=== PATIENT | male | born 1980 | race Caucasian/White ===

== ENCOUNTER 2017-04-23 12:36 | Emergency (ER) | payer BC, SELFPAY | END 2017-04-23 14:35 | disposition home or self-care (01) | LOC: ERS 12:36 | DX: M72.2 Plantar fascial fibromatosis (principal); F17.210 Nicotine dependence, cigarettes, uncomplicated | CPT/HCPCS: 99283 ==

== ENCOUNTER 2018-04-07 13:36 | Emergency (ER) | payer BC, SELFPAY ==
[2018-04-07 15:01] LABS: Bilirubin Negative (Negative); Blood, Urine Negative (Negative); Clarity CLEAR (Clear); Glucose, Urine (Dipstick) Negative (Negative); Leukocyte Negative (Negative); Nitrite Negative (Negative); Protein, Urine (Dipstick) Negative (Neg-Trace); Specific Gravity, Urine 1.017 (1.002-1.036); pH, Urine 6.5 (5.0-9.0)
[2018-04-07] MEDS ORDERED: HYDROcodone/Acetaminophen 10/325 mg Tablet ONE (15:23)
[2018-04-07] MEDS ORDERED: Ibuprofen 800 MG TAB ONE (15:23)
[2018-04-07] MEDS ORDERED: cefTRIAXone\\ROCEPHIN 250 MG VIAL ONE (16:42)
[2018-04-07] MEDS ORDERED: Azithromycin 250 MG TAB ONE (16:42)
[2018-04-07] MEDS ORDERED: Lidocaine 1% PF 5 ML VIAL ONE (16:42)
[2018-04-10 02:04] LABS: Chlamydia by PCR Not Detected (NotDetected); GC by PCR Not Detected (NotDetected)
== END 2018-04-07 17:12 | disposition home or self-care (01) ==
LOC: ERS 13:36
DX: K62.3 Rectal prolapse (principal); F17.210 Nicotine dependence, cigarettes, uncomplicated
CPT/HCPCS: 81003; 87491; 87591; 96372; J0696; J2001

== ENCOUNTER 2018-04-11 19:09 | Observation (INO) | payer SELFPAY ==
[2018-04-11] MEDS ORDERED: Morphine 4 MG/ML VIAL ONE (22:18)
[2018-04-11 23:04] LABS: #Basophils 0.1 thou/uL (0.0-0.2); #Eosinphils 0.3 thou/uL (0.0-0.7); #Lymphocytes 4.1 thou/uL (1.20-3.40); #Monocytes 0.9 thou/uL (0.11-0.59); #Neutrophils 4.6 thou/uL (1.40-6.50); %Basophils 1.2 % (0.0-1.0); %Eosinophils 2.6 % (0.0-10.0); %Lymphocytes 41.2 % (21.0-51.0); %Monocytes 8.6 % (0.0-10.0); %Neutrophils 46.4 % (42.0-75.0); Hemoglobin 15.4 g/dL (14.0-18.0); Mean Corpuscular HGB CONC 32.5 g/dL (32.0-36.0); Mean Corpuscular Hemoglobin 32.5 pg (27.0-31.0); Mean Platelet Volume 6.8 fL (7.4-10.4); Platelet Count 309 thou/uL (130-400); RBC Distribution Width 12.1 % (11.5-14.5); Red Blood Cell (RBC) Count 4.72 mill/uL (4.70-6.10)
--- NOTE | 2018-04-11 23:09 | RAD ---
CHEST ONE VIEW: 04/11/18 INDICATION: History of rectal prolapse. COMPARISON: Prior chest radiograph dated 07/07/12. FINDINGS: Heart size is normal. Portions of the right lower costophrenic angle has been excluded. No acute osse ous abnormality is evident. IMPRESSION: Some limitation of the examination. No definite acute abnormality evident. POS: [facility]
[2018-04-11 23:10] LABS: INR-International Normal Ratio 0.9; PTT 29.1 SEC (22.9-36.1); Prothrombin Time 12.2 SEC (12.0-14.7)
[2018-04-11 23:43] LABS: ALT (SGPT) 34 U/L (8-55); AST (SGOT) 29 U/L (5-34); Albumin 4.4 g/dL (3.5-5.0); Alkaline Phosphatase 76 U/L (40-150); Anion Gap 14 mmol/L (10-20); BUN (Urea Nitrogen) 13 mg/dL (8.9-20.6); Bilirubin, Total Less than 0.2 mg/dL (0.2-1.2); Calc. Creatinine Clearance 0 mL/min (70-130); Calcium 10.1 mg/dL (7.8-10.44); Carbon Dioxide 26 mmol/L (22-29); Chloride 105 mmol/L (98-107); Estimated GFR-MDRD Greater than 90; Glucose 108 mg/dL (70-105); Potassium 3.9 mmol/L (3.5-5.1); Protein, Total 7.4 g/dL (6.0-8.3); Sodium 141 mmol/L (136-145)
[2018-04-11] MEDS ORDERED: Ondansetron ODT 4 MG TAB SL PRN (23:51)
[2018-04-11] MEDS ORDERED: Ondansetron PF 4 MG/2 ML Vial IVP PRN (23:51)
[2018-04-11] MEDS: Sodium Chloride 0.9% 1,000 ML IV SCH (23:57)
[2018-04-12 01:36] VITALS: BMI 22.4
[2018-04-12] MEDS: Morphine 4 MG/ML VIAL SLOW IVP PRN ×3 (02:18→08:51)
[2018-04-12] MEDS: Sodium Chloride 0.9% 1,000 ML IV SCH (08:49)
[2018-04-12] MEDS ORDERED: CEFAZOLIN 2 GM in Premix Bag 1 BAG IVPB SCH (09:15)
[2018-04-12] MEDS ORDERED: Morphine 4 MG/ML VIAL SLOW IVP PRN ×2 (11:16→11:17)
[2018-04-12] MEDS ORDERED: Ketorolac Tromethamine 30 MG/ML VIAL IVP SCH (11:30)
[2018-04-12] MEDS ORDERED: Midazolam HCl 2 mg/2 ml Vial ONE (15:11)
[2018-04-12] MEDS ORDERED: Fentanyl 100 MCG/2 ML VIAL ONE ×3 (15:37→17:18)
[2018-04-12] MEDS ORDERED: Bupivacaine HCl 0.5%/Epinephrine 1:200,000/PF 30 ml Vial ONE (15:39)
[2018-04-12] MEDS ORDERED: Bupivacaine 0.25% HCL 30 ML VIAL ONE (15:39)
[2018-04-12] MEDS ORDERED: Lidocaine 1% PF 5 ML VIAL ONE (15:43)
[2018-04-12] MEDS ORDERED: PROPOFOL 200 MG/20 ML VIAL ONE (15:43)
[2018-04-12] MEDS ORDERED: Dexamethasone 20 MG/5 ML VIAL ONE (15:43)
[2018-04-12] MEDS ORDERED: Ondansetron PF 4 MG/2 ML Vial ONE (15:43)
[2018-04-12] MEDS ORDERED: PHENYLEPHRINE-NS 100 MCG/ML 10 ML SYRINGE ONE (15:43)
[2018-04-12] MEDS ORDERED: ePHEDrine 50 MG/ML VIAL ONE (15:43)
[2018-04-12] MEDS ORDERED: Promethazine HCl 25 MG/ML VIAL IM PRN (16:21)
[2018-04-12] MEDS ORDERED: Promethazine HCl 25 MG/ML VIAL SLOW IVP PRN (16:21)
[2018-04-12] MEDS ORDERED: Ondansetron HCl/PF 4 MG/2 ML Vial IVP PRN (16:21)
[2018-04-12] MEDS ORDERED: Meperidine HCl/PF 25 MG/ML VIAL SLOW IVP PRN (16:21)
[2018-04-12] MEDS ORDERED: Ketorolac Tromethamine 30 MG/ML VIAL IVP PRN (16:21)
[2018-04-12] MEDS ORDERED: Ketorolac Tromethamine 30 MG/ML VIAL ONE (17:07)
[2018-04-12] MEDS ORDERED: Meperidine HCl/PF 25 MG/ML VIAL ONE (17:07)
--- NOTE | 2018-04-12 19:47 | HP ---
CHIEF COMPLAINT: Rectal pain with visible external mass. HISTORY OF PRESENT ILLNESS: The patient is a 37-year-old white male. He gives a history of about 4 or 5 days ago being at work and lifting something heavy at which time, he felt sudden onset of rectal pain and noticed a mass external to his anus. Later that day, he was seen in the emergency room and was felt to have a rectal prolapse. This was apparently treated by putting sugar on it and recommended that he be on MiraLAX and follow up with General Surgery. He presented to the emergency room again last night, when I was on-call and I was asked to evaluate him. I was again told that he likely had a rectal prolapse. He notes that while on MiraLAX, he has been having some bowel movements, but he has pain all the time as well as worse pain with a bowel movement and difficulty urinating as well. On brief examination, it looks like he could have some atypical low-grade rectal prolapse, but an attempt to reducing this was met with significant discomfort. On further examination, I felt that this likely was not an actual rectal prolapse. PAST MEDICAL HISTORY: Negative. PAST SURGICAL HISTORY: None. MEDICATIONS: None. ALLERGIES: NO KNOWN DRUG ALLERGIES. PERSONAL AND SOCIAL HISTORY: He is single with no children. He lives by himself. He smokes a pack of cigarettes per day. He drinks alcohol occasionally, but not every day. He denies illegal drugs. 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 He lives in [place]. REVIEW OF SYSTEMS: Otherwise unremarkable. FAMILY HISTORY: Noncontributory. PHYSICAL EXAMINATION: VITAL SIGNS: He is afebrile. vital signs are within normal limits. GENERAL: He is a well-developed, well-nourished, pleasant 37-year-old white male. He is alert and oriented x3. HEAD, EYES, EARS, NOSE, AND THROAT: Unremarkable. NECK: Supple without mass or tenderness. LUNGS: Clear to auscultation throughout. CARDIAC: Regular rate and rhythm without murmur. ABDOMEN: Soft, nontender, and nondistended. : Normal male external genitalia. RECTAL: He has indurated mass circumferentially around his anus, typical of external hemorrhoids. It is difficult to discern at bedside whether this is simply inflammation or thrombosis. He appears to have partially prolapsed thrombosed internal hemorrhoids. Again, it is difficult to discern at what radian these are or if they are in fact circumferential. LABORATORY DATA: CBC and basic metabolic panel are essentially normal. ASSESSMENT: The patient with severe rectal pain with what I suspect is thrombosed internal and external hemorrhoids. I recommend further evaluation under anesthesia. I would recommend thrombus evacuation and possible hemorrhoidectomy depending upon findings at the time of thorough examination. I discussed all this in detail with the patient as well as potential risks. After the surgery, I would recommend outpatient care with rest and frequent sitz baths, and MiraLAX to maintain regularity. I will make further recommendations following surgery and see him back in a couple of weeks. Job ID: [id number]
[2018-04-12 19:57] VITALS: BP 129/76; TEMP 98.2
[2018-04-12] MEDS ORDERED: Polyethylene Glycol 3350 17 GM Packet PO SCH (21:00)
--- NOTE | 2018-04-13 17:03 | OP ---
DATE OF PROCEDURE: 04/12/2018 PREOPERATIVE DIAGNOSES: Thrombosed internal and external hemorrhoids. POSTOPERATIVE DIAGNOSES: Thrombosed internal and external hemorrhoids. OPERATION PERFORMED: Two column internal/external hemorrhoidectomy and third column of external hemorrhoids only. ANESTHESIA: General endotracheal. INDICATIONS: The patient is a 37-year-old white male. He presented to the hospital complaining of extreme anorectal pain. This was initially felt to be rectal prolapse when viewed by emergency room physician; however, further examination by myself revealed that this was likely just thrombosed hemorrhoids. Due to the extent of his pain, I recommended surgical excision following examination under anesthesia. DESCRIPTION OF OPERATION: Informed consent was obtained, the patient was taken to the operating room, where general endotracheal anesthesia was obtained when the patient in supine position. He was then placed up into the dorsal lithotomy. The perianal area was trimmed of hair, prepped with Betadine, and draped in usual sterile fashion. Local anesthetic was infiltrated and a 4-quadrant intersphincteric fashion using 0.5% Marcaine with epinephrine. Examination revealed that there was evidence of likely external hemorrhoidal thrombosis in the posterior aspect (at the 6 o'clock radiant) as well as at the 3 o'clock radiant. There was extensive external edema almost circumferentially. Within the rectum, where 2 prolapsing and thrombosed internal hemorrhoids and these were both on the posterior aspect within a centimeter of each other and both around the 6 o'clock radiant. I decided first to proceed with excision of the posterior complex. The anal retractor was placed, additional local anesthetic was infiltrated. A mónica-shaped incision was created externally and carried internally to the level of the sphincter. The small LigaSure device was used to dissect the overlying hemorrhoidal tissue back into the rectum and a hemostatic fashion. The specimen was passed off the field and submitted to Pathology. The defect was closed with a running locking suture of 3-0 Vicryl. There was obvious prolapse and some degree of thrombosis at the left lateral aspect at the 3 o'clock radiant. I therefore performed a second column hemorrhoidectomy on that side. There were no thrombosed internal hemorrhoids on that side, but there was certainly evidence of external hemorrhoidal thrombosis. It was also closed with a running suture of 3-0 Vicryl. Finally, there was an area of induration involving the external hemorrhoids at about the 8 o'clock radiant. I made a small external hemorrhoidal radial incision and evacuated a couple of areas of thrombosed hemorrhoids. This defect was approximated with a couple of interrupted sutures of 3-0 Vicryl. The anus was further inspected. There was found to be no evidence of further hemorrhoidal or other abnormality. I placed an internal packing of Gelfoam with lidocaine jelly and externally placed dry gauze with mesh pants. There were no complications. The patient tolerated the procedure well and was taken to recovery room in stable condition. Job ID: [id number]
== END 2018-04-12 20:11 | disposition home or self-care (01) ==
LOC: ERS 19:09 → SURG A 23:40
PROVIDERS: ADMIT Specialist; ATTEND Specialist
PROC: 06BY0ZC Excision of Hemorrhoidal Plexus, Open Approach (ICD-10-PCS; principal; 2018-04-12)
DX: K64.5 Perianal venous thrombosis (principal); F17.210 Nicotine dependence, cigarettes, uncomplicated
CPT/HCPCS: 36415; 71045; 80053; 85025; 85610; 85730; 88304; 93005; 96361; 96372; 96375; 96376; G0378; J0670; J1100; J1885; J2001; J2175; J2250; J2270; J2405; J2704; J3010; J3490; S0020

== ENCOUNTER 2018-04-13 12:45 | Emergency (ER) | payer SELFPAY ==
[2018-04-13 13:35] LABS: Hemoglobin 14.2 g/dL (14.0-18.0); Mean Corpuscular HGB CONC 32.1 g/dL (32.0-36.0); Mean Corpuscular Hemoglobin 31.6 pg (27.0-31.0); Mean Corpuscular Volume 98.6 fL (78.0-98.0); Mean Platelet Volume 6.8 fL (7.4-10.4); Platelet Count 323 thou/uL (130-400); RBC Distribution Width 12.1 % (11.5-14.5); White Blood Cell (WBC) Count 20.3 thou/uL (4.8-10.8)
[2018-04-13 13:41] LABS: Bilirubin Negative (Negative); Blood, Urine Negative (Negative); Clarity CLEAR (Clear); Glucose, Urine (Dipstick) Negative (Negative); Leukocyte Negative (Negative); Nitrite Negative (Negative); Protein, Urine (Dipstick) Negative (Neg-Trace); Specific Gravity, Urine 1.009 (1.002-1.036); Urobilinogen 0.2 mg/dL (0.2-1.0)
[2018-04-13 13:41] LABS: PTT 28.5 SEC (22.9-36.1); Prothrombin Time 12.7 SEC (12.0-14.7)
[2018-04-13 13:50] LABS: Band 4 % (5-11); Lymphocytes 18 % (21-51); MDiff Complete? YES; Monocytes 5 % (0-10); Neutrophil 73 % (42-75); Platelet Morphology Comment Appears Adequate; RBC Morphology Normal
[2018-04-13 13:57] LABS: ALT (SGPT) 67 U/L (8-55); AST (SGOT) 55 U/L (5-34); Albumin 4.7 g/dL (3.5-5.0); Alkaline Phosphatase 73 U/L (40-150); Anion Gap 15 mmol/L (10-20); BUN (Urea Nitrogen) 15 mg/dL (8.9-20.6); Bilirubin, Total 0.3 mg/dL (0.2-1.2); Calc. Creatinine Clearance 0 mL/min (70-130); Calcium 10.1 mg/dL (7.8-10.44); Carbon Dioxide 24 mmol/L (22-29); Chloride 101 mmol/L (98-107); Estimated GFR-MDRD Greater than 90; Globulin 3.1 g/dL (2.4-3.5); Glucose 94 mg/dL (70-105); Potassium 3.5 mmol/L (3.5-5.1); Protein, Total 7.8 g/dL (6.0-8.3); Sodium 136 mmol/L (136-145)
[2018-04-13] MEDS ORDERED: Ketorolac Tromethamine 30 MG/ML VIAL ONE (14:11)
== END 2018-04-13 15:03 | disposition home or self-care (01) ==
LOC: ERS 12:45
DX: G89.18 Other acute postprocedural pain (principal); R33.9 Retention of urine, unspecified; F41.9 Anxiety disorder, unspecified; F17.210 Nicotine dependence, cigarettes, uncomplicated; Z79.891 Long term (current) use of opiate analgesic; Z79.899 Other long term (current) drug therapy
CPT/HCPCS: 36415; 51702; 80053; 81003; 85025; 85610; 85730; 86850; 86900; 86901; 94760; 96374; J1885

== ENCOUNTER 2018-04-21 01:18 | Emergency (ER) | payer SELFPAY ==
[2018-04-21 01:54] LABS: #Basophils 0.1 thou/uL (0.0-0.2); #Eosinphils 0.1 thou/uL (0.0-0.7); #Lymphocytes 2.7 thou/uL (1.20-3.40); #Monocytes 1.6 thou/uL (0.11-0.59); #Neutrophils 10.1 thou/uL (1.40-6.50); %Basophils 0.6 % (0.0-1.0); %Lymphocytes 18.3 % (21.0-51.0); %Monocytes 10.9 % (0.0-10.0); %Neutrophils 69.1 % (42.0-75.0); Hemoglobin 13.8 g/dL (14.0-18.0); Mean Corpuscular HGB CONC 33.4 g/dL (32.0-36.0); Mean Corpuscular Hemoglobin 32.7 pg (27.0-31.0); Mean Platelet Volume 6.6 fL (7.4-10.4); Platelet Count 450 thou/uL (130-400); RBC Distribution Width 12.1 % (11.5-14.5); Red Blood Cell (RBC) Count 4.22 mill/uL (4.70-6.10); White Blood Cell (WBC) Count 14.6 thou/uL (4.8-10.8)
[2018-04-21 02:06] LABS: ALT (SGPT) 27 U/L (8-55); AST (SGOT) 15 U/L (5-34); Albumin 4.2 g/dL (3.5-5.0); Alkaline Phosphatase 90 U/L (40-150); Anion Gap 9 mmol/L (10-20); BUN (Urea Nitrogen) 15 mg/dL (8.9-20.6); Bilirubin, Total 0.2 mg/dL (0.2-1.2); Calc. Creatinine Clearance 0 mL/min (70-130); Calcium 9.5 mg/dL (7.8-10.44); Carbon Dioxide 31 mmol/L (22-29); Chloride 104 mmol/L (98-107); Estimated GFR-MDRD Greater than 90; Potassium 3.7 mmol/L (3.5-5.1); Protein, Total 7.2 g/dL (6.0-8.3); Sodium 140 mmol/L (136-145)
[2018-04-21 02:08] LABS: Glucose 57 mg/dL (70-105)
[2018-04-21] MEDS ORDERED: Lidocaine 2% Jelly 5 ML TUBE ONE (04:03)
== END 2018-04-21 07:04 | disposition home or self-care (01) ==
LOC: ERS 01:18
DX: K91.840 Postprocedural hemorrhage of a digestive system organ or structure following a digestive system procedure (principal); F17.210 Nicotine dependence, cigarettes, uncomplicated
CPT/HCPCS: 36415; 36416; 80053; 85025; 86850; 86900; 86901; 96360